=== PATIENT | female | born 1960 | race Hispanic/Latino ===

== ENCOUNTER 2023-07-02 06:17 | Day surgery (SDC) | payer OTHER, SELFPAY ==
[2023-06-30 07:26] VITALS: BMI 31.9
[2023-06-30 08:50] LABS: Hematocrit 36.7 % (37.0-47.0); Hemoglobin 12.5 g/dL (12.0-16.0); Mean Corp Hgb Conc. 34.1 g/dL (33.0-37.0); Mean Corpuscular Hgb 27.4 pg (27.0-31.0); Mean Corpuscular Volume 80.5 fL (81.0-99.0); Mean Platelet Volume 9.8 fL (7.4-10.4); Platelet Count 113 10^3/uL (130-400); Red Blood Cell Count 4.56 10^6/uL (4.20-5.40); Red Cell Dist. Width 15.7 % (11.5-14.5)
[2023-06-30 08:56] LABS: INR 1.11; PT 14.1 Sec (11.4-14.6)
[2023-06-30 08:57] LABS: APTT 32.3 Sec (23.4-35.0)
[2023-06-30 08:59] LABS: Urine Albumin Negative (Neg - Trace); Urine Bilirubin Negative (Negative); Urine Character Clear (Clear); Urine Color Yellow; Urine Glucose Negative (Negative); Urine Ketone Negative (Negative); Urine Leukocyte Negative (Negative); Urine Nitrite Negative (Negative); Urine Occult Blood Negative (Negative); Urine Urobilinogen 1+ (Neg - 1+)
[2023-06-30 09:27] LABS: Blood Urea Nitrogen 16 mg/dl (7-17); Calcium 9.5 mg/dl (8.4-10.2); Carbon Dioxide 24 mmol/L (22-30); Chloride 106 mmol/L (98-107); Estimated Creatinine Clearance 94 ml/min; Glucose 114 mg/dl (70-99); Sodium 138 mmol/L (135-145); eGFR > 60.00
[2023-07-02] VITALS (10 sets, daily range): BP systolic 122–147; BP diastolic 64–87; BMI 31.9
[2023-07-02] MEDS: NORMOSOL-R 1000 IV (06:40)
[2023-07-02 06:42] LABS: Glucose - Point of Care 98 mg/dl (70-99)
[2023-07-02] MEDS: DETROL LA 4 MG PO (09:01)
[2023-07-02] MEDS: Pyridium 200 MG PO (09:02)
[2023-07-02 09:37] LABS: Glucose - Point of Care 113 mg/dl (70-99)
== END 2023-07-02 10:16 | disposition home or self-care (01) ==
LOC: SDS 06:17
PROVIDERS: ATTENDING PHYSICIAN Specialist
DX: N20.2 Calculus of kidney with calculus of ureter (principal)
CPT/HCPCS: 52356; 36415; 74018; 76000; 80048; 81003; 82962; 85027; 85610; 85730; 93005; C1894; C2617

== ENCOUNTER 2023-10-24 18:13 | Emergency (ER) | payer OTHER, SELFPAY ==
[2023-10-24 18:14] VITALS: BP 117/72; BMI 31.6
[2023-10-24] MEDS: TYLENOL 1000 MG PO (18:19)
[2023-10-24 18:44] LABS: COVID-19 Antigen Positive (Negative)
--- NOTE | 2023-10-24 21:20 | ED.GENMED ---
History of Present Illness
General
Chief Complaint: Fever
Source: patient and other (friend)
Exam Limitations: none
Time Seen by Provider: 10/24/23 21:12
Nursing documentation reviewed up to this point in time: agreed with
History of Present Illness
History of Present Illness:
The patient is a 62-year-old female brought in by her friend for confusion for 2 days. Her friend reports that the patient appeared flushed yesterday and confused and fell. She is not sure if her friend hit her head. The patient reports that she
is not sure if she hit her head. She reports a mild headache and denies vision changes. She denies nausea and vomiting. She denies focal weakness and numbness. Patient reports she just feels tired and has been coughing. Patient denies neck pain
and back pain.
Past History
Past History
ED Past Medical History: Arrthythmia (Atrial fibrillation treated with ablation), HTN, Hypercholesterolemia, NIDDM and Other (kidney stone)
ED Past Surgical History: Appendectomy, Cardiac (Cardiac ablation), Gynecological (hysterectomy Total, ) and Other (Hernia repair)
Social History
Tobacco: Non-smoker
Alcohol: None
Drug: None
Personal:
Living: alone
Employment: Employed
Family History
Family History: Other (Noncontributory); Negative Early CAD
Review of Systems
Review of Systems
Allergies reviewed?: Yes
All Other Systems: ROS reviewed and negative except as documented in HPI and ROS
Constitutional: Reports fever, fatigue and chills
EENT: Reports no symptoms
Respiratory: Reports cough
Cardiac: Reports no symptoms
ABD/GI: Reports anorexia
Musculoskeletal: Reports muscle pain
Skin: Reports no symptoms
Neurological: Reports headache
Endocrine: Reports no symptoms
Hematologic/Lymphatic: Reports no symptoms
Psychiatric: Reports no symptoms
Phy Exam
Physical Exam
Physical Exam:
Physical Exam
General: Patient appears diaphoretic and tired but easily arousable and when aroused is conversational
Neck: supple. no meningeal signs. normal psoterior pharynx. Dry mucous membrane. Nontender C-spine
Heart: s1/s2 regular rate and rhythm, no murmur. equal radial pulses.
Lungs: no acute respiratory distress. clear bilaterally. No vertebral spine tenderness
Abdomen: normal bowel sounds. not tender. no CVAT
Neuro: alert and orientedx3. no focal neurological deficits. 5 out of 5 strength in all extremities.
Skin: no rash
Psychiatric: well kept. interactive and cooperative
Extremities: Atraumatic upper and lower extremities. Nontender pelvis and hips
Course
Orders/Labs/Results
Orders:
Orders
10/24/23 18:18
Acetaminophen [Tylenol] 1,000 mg .ROUTE .STK-MED ONE
Acetaminophen [Tylenol] 1,000 mg PO NOW STA
10/24/23 18:21
COVID-19 Antigen Urgent
Source: Nasal Swab
10/24/23 21:20
CT Head W/o Iv Contrast Urgent
Comment:
Reason For Exam: fall, confusion
0.9% Sodium Chloride 1000 ml [Nss] 1,000 ml IV BOLUS
10/24/23 21:[address] Non Medication Order As Directed
Physician Order: recheck temperature
Above order entered?: Yes
CR Chest - 2 Views Urgent
Comment:
Reason For Exam: cough
10/24/23 22:11
Complete Blood Count/With Diff Urgent
Comprehensive Metabolic Panel Urgent
10/25/23 00:13
Ibuprofen [Motrin] 600 mg PO NOW STA
Abnormal Lab Results
10/24/23 10/24/23
18:21 22:11
Hgb 11.6 L g/dL
(12.0-16.0)
Hct 34.0 L %
(37.0-47.0)
MCV 77.6 L fL
(81.0-99.0)
MCH 26.5 L pg
(27.0-31.0)
RDW 16.5 H %
(11.5-14.5)
Plt Count 94 L 10^3/uL
(130-400)
Absolute Monos (auto) 1.2 H 10^3/uL
(0.1-0.6)
Monocytes % 18.6 H %
(1.7-9.3)
BUN 22 H mg/dl
(7-17)
Glucose 100 H mg/dl
(70-99)
Calcium 10.4 H mg/dl
(8.4-10.2)
AST 95 H U/L
(14-36)
ALT 54 H U/L
(0-35)
SARS-CoV-2 Antigen Positive A
(Negative)
10/24/23 22:11
10/24/23 22:11
Vital Signs
Initial and Last Documented VS:
Initial Vital Signs
Temp Pulse Resp BP Pulse Ox
102.7 F H 98 16 117/72 96
10/24/23 18:14 10/24/23 18:14 10/24/23 18:14 10/24/23 18:14 10/24/23 18:14
Last Documented Vital Signs
Temp Pulse Resp BP Pulse Ox
98.1 F 98 16 132/68 96
10/24/23 22:16 10/24/23 18:14 10/24/23 18:14 10/24/23 22:41 10/24/23 18:14
MDM/Problems Addressed
Differential Diagnosis Includes:
Acute dehydration, COVID, pneumonia, UTI, closed head injury
MDM/Problems Addressed:
Patient presents with acute fever and sleepiness with a reported unwitnessed fall
Chronic conditions affecting care: DM
Acute Exacerbation and/or Progression of Chronic Illness: DM
*Radiology
Radiology exam reviewed: preliminary read by ED provider
*Pulse Oximetry
Patient hypoxic: no
*EKG
Interpreted by ED Provider?: NA
*Communications Specialist Interpretation
Rate: normal
Interpretation: normal
Rhythm: sinus
*Critical Care Note
Total Time (30-74mins, 75-104mins- exclusive of procedures): Not Applicable
Patient Management
Social determinants of health affecting care: Strong social support
Escalation/DeEscalation of care consider admission/obs:
Patient is fully awake and feels much better after getting IV fluids. She reports her headache is improved. CT head shows no acute intracranial abnormalities. Patient is able to drink fluids without difficulty. Her friend reports that she will
stay with her overnight to watch her and make sure her fever stays under control.
ED Attending Note
-
Portions of this chart may have been created with voice recognition software.� Occasional wrong word or��sound alike� substitutions may have occurred due to the inherent limitations of voice recognition software.
Discharge Plan
Departure
Patient Disposition: Home (Routine Discharge)
Date of Disposition: 10/25/23
Time of Disposition: 00:08
Patient with high blood pressure during this ER visit?: Yes
Condition: Good
Covid-19: Confirmed COVID-19
Discharge Problem:
COVID, Fever
Instructions: Fever, Adult (DC), Coronavirus Home Quarantine
Prescriptions:
No Action
aspirin 81 MG tablet,delayed release (DR/EC)
81 mg PO DAILY
metformin 500 mg Tablet
500 mg PO BID
escitalopram oxalate 20 mg Tablet
20 mg PO HS
diltiazem HCl 120 mg Tablet Extended Release 24 Hr
120 mg PO DAILY
omeprazole 20 mg Tablet,Delayed Release (Dr/Ec)
20 mg PO DAILY
clonazepam 0.5 mg Tablet
0.5 mg PO PRN PRN (Reason: anxiety, insomnia)
ibuprofen [Advil] 200 mg Tablet
400 mg PO Q6H PRN (Reason: pain)
acetaminophen 500 mg Tablet
1,000 mg PO QID PRN (Reason: pain)
Referrals:
Barry Fountain MD [Family Provider] -
Activity Restrictions/Additional Instructions:
Please take 1000 mg of Tylenol every 4-6 hours for fever. Please drink lots of fluids to keep yourself well-hydrated.
Interventions
Interventions:
*Risk Screen - Suicide Last Done: 10/24/23 18:14
*General Assessment Last Done: 10/24/23 22:38
*Neglect/Abuse Screening Last Done: 10/24/23 18:14
ED- Neurological Assessment Last Done: 10/24/23 22:38
ED-Skin Assessment Last Done: 10/24/23 22:38
Discharge Date and Time
Print Language: GERMAN
[2023-10-24 22:30] LABS: % Basophils 0.5 % (0-2); % Eosinophils 0.2 % (0-6); % Immature Granulocytes 0.3 % (0-0.5); % Lymphocytes 29.4 % (20.5-51.1); % Monocytes 18.6 % (1.7-9.3); Absolute Lymphocytes 1.8 10^3/uL (1.2-3.4); Absolute Monocytes 1.2 10^3/uL (0.1-0.6); Absolute Neutrophils 3.2 10^3/uL (1.4-6.5); Hemoglobin 11.6 g/dL (12.0-16.0); Mean Corp Hgb Conc. 34.1 g/dL (33.0-37.0); Mean Corpuscular Hgb 26.5 pg (27.0-31.0); Mean Corpuscular Volume 77.6 fL (81.0-99.0); Mean Platelet Volume 9.3 fL (7.4-10.4); Nucleated Red Blood Cells % 0 %; Platelet Count 94 10^3/uL (130-400); Red Blood Cell Count 4.38 10^6/uL (4.20-5.40); Red Cell Dist. Width 16.5 % (11.5-14.5); White Blood Cell Count 6.2 10^3/uL (4.8-10.8)
[2023-10-24] MEDS: NSS 1000 IV (22:35)
[2023-10-24 22:36] LABS: ALT (SGPT) 54 U/L (0-35); AST (SGOT) 95 U/L (14-36); Albumin 4.1 g/dl (3.5-5.0); Alkaline Phosphatase 93 U/L (38-126); Blood Urea Nitrogen 22 mg/dl (7-17); Calcium 10.4 mg/dl (8.4-10.2); Carbon Dioxide 22 mmol/L (22-30); Chloride 105 mmol/L (98-107); Estimated Creatinine Clearance 74 ml/min; Glucose 100 mg/dl (70-99); Potassium 3.7 mmol/L (3.5-5.1); Sodium 136 mmol/L (135-145); Total Bilirubin 0.8 mg/dl (0.2-1.3); eGFR > 60.00
[2023-10-24 22:41] VITALS: BP 132/68
[2023-10-24 22:47] LABS: Total Protein 6.7 g/dl (6.3-8.2)
[2023-10-25] MEDS: MOTRIN 600 MG PO (00:29)
[2023-10-25 00:36] VITALS: BP 118/59
[2023-10-25 00:38] VITALS: BP 118/59
[2023-10-25 00:39] VITALS: BP 118/59
== END 2023-10-25 00:46 | disposition home or self-care (01) ==
LOC: EMR 18:13
PROVIDERS: Student in an Organized Health Care Education/Training Program; EMERGENCY PHYSICIAN Emergency Medicine; FAMILY PHYSICIAN Internal Medicine
DX: U07.1 COVID-19 (principal); R50.9 Fever, unspecified; W19.XXXA Unspecified fall, initial encounter; Z11.52 Encounter for screening for COVID-19; I10 Essential (primary) hypertension
CPT/HCPCS: 99285; 96360; 70450; 71046; 80053; 85025; 87811

== ENCOUNTER → 2024-04-06 11:14 | Outpatient (REF) | payer OTHER, SELFPAY | LOC: HWWDC 11:14 | PROVIDERS: ATTENDING PHYSICIAN Internal Medicine | DX: Z12.31 Encounter for screening mammogram for malignant neoplasm of breast (principal); Z78.0 Asymptomatic menopausal state | CPT/HCPCS: 77063; 77067; 77080 ==

== ENCOUNTER → 2024-07-11 07:35 | Outpatient (REF) | payer OTHER, SELFPAY | LOC: PAVMRI 07:35 | PROVIDERS: ATTENDING PHYSICIAN Internal Medicine | DX: M54.10 Radiculopathy, site unspecified (principal) | CPT/HCPCS: 72148 ==